=== PATIENT | male | born 1940 | race Caucasian/White ===

== ENCOUNTER 2022-07-01 07:53 | Day surgery (SDC) | payer MEDICARE ==
[2022-06-26 15:06] VITALS: BMI 30.9
[2022-07-01] MEDS ORDERED: Oxymetazoline HCl 0.05% ( 15 ML ) ONE (10:38)
[2022-07-01] MEDS ORDERED: Triamcinolone 40 MG/ML VIAL ONE (11:22)
[2022-07-01] MEDS ORDERED: CEFAZOLIN 1 GM VIAL ONE ×3 (11:22→11:23)
[2022-07-01] MEDS ORDERED: Dexamethasone 20 MG/5 ML VIAL ONE (11:26)
[2022-07-01] MEDS ORDERED: Fentanyl 100 MCG/2 ML VIAL ONE (11:26)
[2022-07-01] MEDS ORDERED: Rocuronium Bromide 10 MG/ML (10ML VIAL) ONE (11:26)
[2022-07-01] MEDS ORDERED: PROPOFOL 20 ML ONE (11:26)
[2022-07-01] MEDS ORDERED: Lidocaine 2% PF 5 ML VIAL ONE (11:26)
[2022-07-01] MEDS ORDERED: Ondansetron PF 4 MG/2 ML Vial ONE (11:26)
[2022-07-01] MEDS ORDERED: Glycopyrrolate 0.2 MG/ML 5 ML SYRINGE ONE (11:28)
[2022-07-01] MEDS ORDERED: ePHEDrine Sulfate 50 MG/10 ML VIAL ONE (11:28)
== END 2022-07-01 14:50 | disposition home or self-care (01) ==
LOC: CSHSDC 07:53
PROVIDERS: ATTEND Otolaryngology Otolaryngic Allergy
PROC: 8E09XBZ Computer Assisted Procedure of Head and Neck Region (ICD-10-PCS; principal; 2022-07-01)
PROC: 099Q8ZZ Drainage of Right Maxillary Sinus, Via Natural or Artificial Opening Endoscopic (ICD-10-PCS; 2022-07-01)
DX: J32.0 Chronic maxillary sinusitis (principal); D14.0 Benign neoplasm of middle ear, nasal cavity and accessory sinuses; H90.A32 Mixed conductive and sensorineural hearing loss, unilateral, left ear with restricted hearing on the contralateral side; H90.3 Sensorineural hearing loss, bilateral; E11.9 Type 2 diabetes mellitus without complications; Z79.84 Long term (current) use of oral hypoglycemic drugs; Z79.899 Other long term (current) drug therapy; Z98.890 Other specified postprocedural states
CPT/HCPCS: 31267; 61782; 82962; C1776; 36416; 88305; J0690; J1100; J2001; J2405; J2704; J3010; J3301